=== PATIENT | female | born 1985 | race Caucasian/White ===

== ENCOUNTER 2016-08-09 11:55 | Emergency (ER) | payer BC ==
[2016-08-09 13:11] LABS: Urine Bilirubin Negative (NEGATIVE); Urine Blood 25 /ul (NEGATIVE); Urine Ketone Negative (NEGATIVE); Urine Nitrite Negative (NEGATIVE); Urine Protein Negative (NEGATIVE); Urine Specific Gravity <=1.005 SP.GR. (1.005-1.010); Urine Urobilinogen Normal (NORMAL); Urine pH 6.5 pH (5.0-7.0)
[2016-08-09 13:16] LABS: Hematocrit 40.3 % (37.0-47.0); Hemoglobin 13.9 gm/dL (12.5-16.0); Mean Cell Volume 92.6 fl (78-100); Mean Corpuscular Hgb Conc 34.5 g/dl (32-36); Mean Platelet Volume 9.9 fl (6.0-9.5); Neutrophil # 4.7 K/mm3 (1.3-6.0); Neutrophil % 67.2 % (42-75.0); Platelet Count 224 K/mm3 (150-450); Red Blood Count 4.35 M/mm3 (4.2-5.4); Red Cell Distribution Width 12.1 % (11.5-14.0)
[2016-08-09 13:17] LABS: Urine Appearance Clear; Urine Color Yellow
[2016-08-09 13:18] LABS: Urine Bacteria TRACE; Urine RBC TRACE /hpf (0-5); Urine WBC None Seen /hpf (0-5)
[2016-08-09 13:31] LABS: Albumin * 3.9 gm/dl (3.4-5.0); Anion Gap 14.9 mmol/L (6.8-13.8); BUN/Creatinine Ratio 13.3 (9.0-21.6); Bilirubin, Total 0.5 mg/dL (0.0-1.1); Ca. Corrected For Albumin 9.2 mg/dL (8.4-10.2); Calcium * 9.4 mg/dL (7.9-10.9); Carbon Dioxide 24.3 mmol/L (24-32.6); Potassium 3.2 mmol/L (3.4-4.6); Total Protein 7.1 gm/dL (6.2-8.2)
--- NOTE | 2016-08-09 14:08 | ERNOTE ---
ER Female HPI Stated Complaint: HEAVY BLEEDING 5 WEEKS Presenting Symptoms: vaginal bleeding Time Seen by Provider: 08/09/16 11:59 Source: patient Exam Limitations: no limitations Immunizations: IMMUNIZATION HX Immunizations Up to Date Yes Allergies/Adverse Reactions: Allergies No Known Allergies Allergy (Unverified 08/09/16 12:02) Home Medications: HOME MEDICATIONS Naproxen [Naprosyn] 500 mg PO BID #60 tablet 08/09/16 [Last Taken Unknown] Vit No.78/Iron/FA [Prenatabs FA Tablet] 1 each PO DAILY 08/09/16 [Last Taken Unknown] - History of Present Illness Narrative: Patient presents with fairly extensive vaginal bleeding. By dates she stated that she was approximately 5 weeks , she had no problem with this and the bleeding started several days ago. She denies any significant pain other than normal menstrual cramping. Timing: Present: constant Quality: Present: moderate Onset Location: Present: vaginal Radiation: Present: none Activities at Onset: Present: none Prior Abdominal Problems: Present: none Sexual [place] History: Present: single partner Associated Symptoms: Present: denies symptoms Review of Systems - Review of Systems Constitutional: Present: no symptoms reported EYE: Present: no symptoms reported ENT: Present: no symptoms reported Respiratory: Present: no symptoms reported Cardiology: Present: no symptoms reported Gastrointestinal/Abdominal: Present: no symptoms reported Genitourinary: Present: no symptoms reported, other - vaginal bleeding Musculoskeletal: Present: no symptoms reported Skin: Present: no symptoms reported Neurological: Present: no symptoms reported Endocrine: Present: no symptoms reported Hematologic/Lymphatic: Present: no symptoms reported Psych: Present: no symptoms reported - Patient's Past Medical History Patient History - Medical: No pertinent hx Patient History - Cardiac/Respiratory: No pertinent hx Patient History - Cancer: No Hx of Cancer Patient History - Surgical Procedures: Other Patient History - Other: None - Social History Smoking Status: Never smoker Have you smoked in the past 12 months: No - Immunizations Immunizations Up to Date: Yes Physical Exam - Physical Exam General Appearance: Present: wd/wn, alert, no apparent distress Eye Exam: Normal inspection: bilateral, PERRL: bilateral Ears, Nose, Throat: Present: normal ENT inspection, H, normal pharynx Neck: Present: normal inspection, nontender Respiratory: Present: no respiratory distress, normal breath sounds, no accessory muscle use, chest nontender, lungs clear Cardiovascular/Chest: Present: regular rate, rhythm, no murmur, normal peripheral pulses Gastrointestinal/Abdominal: Present: normal bowel sounds, nontender, nondistended, soft, no organomegaly Rectal Exam: Present: deferred Back Exam: Present: normal inspection, normal range of motion Extremity Exam: Present: normal inspection, non-tender, no edema, normal range of motion Neurological Exam: Present: alert, oriented, normal mood/affect Skin Exam: Present: normal color, warm/dry Lymphatic Exam: Present: no adenopathy Pelvic Exam: Present: active bleeding, other - cervical os is closed with moderate blood in the vaginal vault ED Progress - Results and Orders Patient's Lab Results:: I have reviewed the patient's lab results. - Vital Signs Patient's Vital Signs:: I have reviewed the patient's vital signs. Vital Signs: Vital Signs 08/09/16 08/09/16 08/09/16 11:58 12:46 13:25 Temperature 37.3 C 36.2 C L Pulse Rate 86 93 102 H Respiratory 12 16 15 Rate Blood Pressure 146/88 136/77 126/85 O2 Sat by Pulse 991 H 100 99 Oximetry - Progress/Reassessment Chief Complaint: Genitourinary Problem Progress:: Unchanged Plan - Plan Plan: While the patient believes she is 5 weeks her quantitative hCG is only 34. I suspect that the patient likely had a blighted ovum and in is in the active process of miscarrying. Patient denies any pain to be given a prescription for Naprosyn to help with any probable cramping that will ensue with this spontaneous . Departure Clinical Impression: Spon w/o complication - Departure Disposition: Home self-care Condition: Good Instructions: Miscarriage, [id number] Prescriptions: Naproxen [Naprosyn] 500 mg PO BID #60 tablet
[2016-08-09 14:16] VITALS: BP 139/81
== END 2016-08-09 14:18 | disposition home or self-care (01) ==
LOC: ER 11:55
DX: O03.9 Complete or unspecified spontaneous abortion without complication (principal)